=== PATIENT | male | born 1940 | race Caucasian/White ===

== ENCOUNTER 2016-06-09 11:03 | Emergency (ER) | payer OTHER ==
[~2016-06-09] VITALS: Ht 175.3 cm; Wt 122.5 kg
[2016-06-09] MEDS ORDERED: SODIUM CHLORIDE 0.9% 500 ML IVB ONE (12:02)
[2016-06-09] MEDS ORDERED: LORazepam 2MG/ML-1ML VIAL IV ONE (12:15)
[2016-06-09 12:50] LABS: Basophils # (auto) 0 uL; Basophils % (auto) 0.3 % (0.0-2.0); Eosinophils # (auto) 0 uL; Eosinophils % (auto) 0.7 % (0.0-7.0); Hematocrit 38.6 % (41.0-53.0); Hemoglobin 13.4 g/dL (13.5-17.5); Lymphocytes # (auto) 1.1 uL; Lymphocytes % (auto) 17.3 % (10.0-50.0); Mean Corpuscular Hemoglobin 31.7 pg (28.0-32.0); Mean Corpuscular Hgb Conc. 34.7 g/dL (32.0-36.0); Mean Corpuscular Volume 91.5 fL (80.0-100.0); Mean Platelet Volume 8.7 fL (7.4-10.4); Monocytes # (auto) 0.6 uL; Monocytes % (auto) 9.5 % (0.0-12.0); Neutrophils # (auto) 4.6 uL; Neutrophils % (auto) 72.2 % (37.0-80.0); Platelet Count (auto) 232 10^3/uL (140-450); Red Cell Distribution Width 12.8 % (11.6-16.0); White Blood Cell 6.3 10^3/uL (4.4-10.8)
[2016-06-09 13:15] LABS: Albumin 3.7 g/dL (3.4-5.0); Alkaline Phosphatase 65 U/L (45-117); Anion Gap 13 (5-15); Aspartate Aminotransferase 12 U/L (15-37); BUN/Creatinine Ratio 13.4; Bilirubin, Total 0.9 mg/dL (0.2-1.0); Blood Urea Nitrogen 21 mg/dL (7-18); Calcium 9.2 mg/dL (8.5-10.1); Carbon Dioxide 23 mmol/L (21-32); Chloride 104 mmol/L (98-107); GFR African American 56 mL/min; GFR Non-African American 46 mL/min; Glucose 132 mg/dL (74-106); Sodium 140 mmol/L (136-145); Total Protein 7.6 g/dL (6.4-8.2)
[2016-06-09 14:27] VITALS: BP 119/75
== END 2016-06-09 14:47 | disposition home or self-care (01) ==
LOC: EDBD 11:03 → ER 11:06
DX: F41.9 Anxiety disorder, unspecified (principal); N20.0 Calculus of kidney; I48.91 Unspecified atrial fibrillation; I11.0 Hypertensive heart disease with heart failure; I50.9 Heart failure, unspecified; E11.9 Type 2 diabetes mellitus without complications; E07.9 Disorder of thyroid, unspecified; R42 Dizziness and giddiness; R11.2 Nausea with vomiting, unspecified
CPT/HCPCS: 36415; 74176; 80053; 83690; 84484; 85025; 93005; 94761; 96361; 96374; 99285; J2060; J7030

== ENCOUNTER 2021-08-01 13:41 | Inpatient (IN) | payer OTHER ==
[2021-07-31 20:11] VITALS: BP 110/65
[~2021-08-01] VITALS: Ht 182.9 cm; Wt 108.9 kg
[2021-08-01 14:43] LABS: Basophils # (auto) 0.1 10 ^3/uL (0-0.2); Basophils % (auto) 0.8 % (0.0-2.0); Eosinophils # (auto) 0.2 10 ^3/uL (0-0.8); Eosinophils % (auto) 2.2 % (0.0-7.0); Hematocrit 41.3 % (41.0-53.0); Hemoglobin 14.2 g/dL (13.5-17.5); Lymphocytes # (auto) 2.8 10 ^3/uL (0.4-5.4); Lymphocytes % (auto) 36.9 % (10.0-50.0); Mean Corpuscular Hemoglobin 33.2 pg (28.0-32.0); Mean Corpuscular Hgb Conc. 34.5 g/dL (32.0-36.0); Mean Corpuscular Volume 96.2 fL (80.0-100.0); Monocytes # (auto) 0.7 10 ^3/uL (0-1.3); Monocytes % (auto) 9.3 % (0.0-12.0); Neutrophils # (auto) 3.9 10 ^3/uL (1.6-8.6); Neutrophils % (auto) 50.8 % (37.0-80.0); Nucleated Red Blood Cells % 0.2 %; Red Blood Cells 4.29 10^6/uL (4.5-5.90); Red Cell Distribution Width 12.8 % (11.8-14.3); White Blood Cell 7.6 10^3/uL (4.4-10.8)
[2021-08-01 14:55] LABS: Albumin 3.5 g/dL (3.4-5.0); BUN/Creatinine Ratio 15.4; Calcium 8.5 mg/dL (8.5-10.1); Magnesium 2.2 mg/dL (1.6-2.6); Potassium 4.8 mmol/L (3.5-5.1)
[2021-08-01 14:56] LABS: Urine WBC None Seen /hpf (0 - 3)
[2021-08-01 14:58] LABS: Bilirubin, Total 0.8 mg/dL (0.2-1.0); Total Protein 7.2 g/dL (6.4-8.2)
[2021-08-01] MEDS ORDERED: AMIODARONE HCL 150 MG in D5W 5% 100 ML IV ONE (15:00)
[2021-08-01 15:09] LABS: Urine Bacteria NONE SEEN /hpf (None Seen); Urine Blood Negative /uL (Negative); Urine Specific Gravity 1.005 (1.001-1.035)
[2021-08-01] MEDS ORDERED: AMIODARONE 450mg/250ml AE 250 ML IV SCH (15:15)
[2021-08-01 15:22] LABS: INR 1.33 (0.9-1.15); Partial Thromboplastin Time 37.3 sec (23.6-33.0)
[2021-08-01] MEDS ORDERED: MORPHINE SULFATE INJECTION 2 MG/ML SYRG IV PRN (16:30)
[2021-08-01] MEDS ORDERED: NITROGLYCERIN 0.4 MG SL TAB SL PRN (16:30)
[2021-08-01] MEDS ORDERED: CHOL20007 PO (16:50)
[2021-08-01] MEDS ORDERED: LEVO25TA6 PO ×2 (16:50→23:56)
[2021-08-01] MEDS ORDERED: LISI-716 PO (16:50)
[2021-08-01] MEDS ORDERED: PRIM50TA27 PO (16:50)
[2021-08-01] MEDS ORDERED: FURO40TA4 PO (16:50)
[2021-08-01] MEDS ORDERED: ATOR40TA52 PO (16:50)
[2021-08-01] MEDS ORDERED: RIV15T PO (16:50)
[2021-08-01 22:00] VITALS: BP 110/65
[2021-08-01] MEDS ORDERED: AMIODARONE HCL 200 MG TAB PO SCH (22:00)
[2021-08-01] MEDS ORDERED: ATORVASTATIN 20 MG TAB PO SCH (22:00)
[2021-08-01] MEDS: AMIODARONE HCL 200 MG TAB PO SCH (22:01)
[2021-08-01] MEDS ORDERED: METO-289 PO (23:56)
[2021-08-01] MEDS ORDERED: AMIO200T33 PO (23:56)
[2021-08-01] MEDS ORDERED: LISI-275 PO (23:56)
[2021-08-01] MEDS ORDERED: BUPR-160 PO (23:56)
[2021-08-02 05:00] VITALS: BP 128/57
[2021-08-02 06:25] LABS: Basophils # (auto) 0 10 ^3/uL (0-0.2); Basophils % (auto) 0.2 % (0.0-2.0); Eosinophils # (auto) 0.1 10 ^3/uL (0-0.8); Eosinophils % (auto) 2.2 % (0.0-7.0); Hematocrit 36.9 % (41.0-53.0); Hemoglobin 12.7 g/dL (13.5-17.5); Lymphocytes # (auto) 1.7 10 ^3/uL (0.4-5.4); Lymphocytes % (auto) 34.5 % (10.0-50.0); Mean Corpuscular Hemoglobin 32.7 pg (28.0-32.0); Mean Corpuscular Hgb Conc. 34.4 g/dL (32.0-36.0); Monocytes # (auto) 0.6 10 ^3/uL (0-1.3); Monocytes % (auto) 11.1 % (0.0-12.0); Neutrophils # (auto) 2.6 10 ^3/uL (1.6-8.6); Nucleated Red Blood Cells % 0.1 %; Red Blood Cells 3.89 10^6/uL (4.5-5.90)
[2021-08-02 06:49] LABS: Albumin 3.1 g/dL (3.4-5.0); BUN/Creatinine Ratio 18.1; Bilirubin, Total 0.6 mg/dL (0.2-1.0); Calcium 8.5 mg/dL (8.5-10.1); Total Protein 6.1 g/dL (6.4-8.2)
[2021-08-02 09:00] VITALS: BP 143/85
[2021-08-02] MEDS ORDERED: ADENOSINE 90 MG in GIVE UN-DILUTED 0 ML IV ONE (09:15)
[2021-08-02] MEDS ORDERED: CHOLECALCIFEROL (VITD3) 2,000 UNIT CAP/TAB PO SCH (10:00)
[2021-08-02] MEDS ORDERED: FUROSEMIDE 40 MG TAB PO SCH (10:00)
[2021-08-02] MEDS ORDERED: PRIMIDONE 50 MG TAB PO SCH (10:00)
[2021-08-02] MEDS ORDERED: RIVAROXABAN 15 MG TAB PO SCH (10:00)
[2021-08-02] MEDS ORDERED: LEVOTHYROXINE SODIUM 25 MCG TAB PO SCH (10:00)
[2021-08-02] MEDS ORDERED: LISINOPRIL 10 MG TAB PO SCH (10:00)
[2021-08-02] MEDS: AMIODARONE HCL 200 MG TAB PO SCH (10:07)
[2021-08-02] MEDS ORDERED: LISI-716 PO (12:00)
[2021-08-02] MEDS ORDERED: POTA-264 PO (12:00)
[2021-08-02] MEDS ORDERED: AMIO200T33 PO (12:04)
[2021-08-02 13:00] VITALS: BP 161/77
[2021-08-02 16:31] VITALS: BP 143/85
[2021-08-02 17:00] VITALS: BP 123/56
== END 2021-08-02 17:05 | disposition home or self-care (01) | DRG 309 ==
LOC: ER 13:41 → EDBD 13:41 → TELE 16:21 → TELE-EAST 20:13
PROVIDERS: ADMIT Internal Medicine; ATTEND Internal Medicine
DX: I48.0 Paroxysmal atrial fibrillation (principal); I24.9 Acute ischemic heart disease, unspecified; I13.0 Hypertensive heart and chronic kidney disease with heart failure and stage 1 through stage 4 chronic kidney disease, or unspecified chronic kidney disease; I50.20 Unspecified systolic (congestive) heart failure; I11.0 Hypertensive heart disease with heart failure; I25.10 Atherosclerotic heart disease of native coronary artery without angina pectoris; Z20.822 Contact with and (suspected) exposure to COVID-19; E11.22 Type 2 diabetes mellitus with diabetic chronic kidney disease; N18.9 Chronic kidney disease, unspecified; Z95.5 Presence of coronary angioplasty implant and graft; Z95.0 Presence of cardiac pacemaker; Z87.442 Personal history of urinary calculi
CPT/HCPCS: 36415; 71045; 78452; 80053; 81001; 83735; 83880; 84436; 84443; 84481; 84484; 85025; 85610; 85730; 93005; 93017; 99291; G0378; J0153; J7060